=== PATIENT | female | born 1980 | race Caucasian/White ===

== ENCOUNTER 2020-11-07 13:23 | Emergency (ER) | payer SELFPAY ==
[~2020-11-07] VITALS: Ht 149.9 cm; Wt 69.1 kg
--- NOTE | 2020-11-07 14:25 | NUR ---
security systems manager: Pt ambulatory to room from lobby at this time.
--- NOTE | 2020-11-07 14:29 | NUR ---
project management professional: attempted to move pt from lobby to room, no answer in lobby
--- NOTE | 2020-11-07 15:02 | NUR ---
manufacturing design engineer: Pt ambulatory to room from lobby at this time.
[2020-11-07] MEDS ORDERED: BACITRACIN ZINC OINT 500U/GM, 0.9 GM ONE (15:44)
--- NOTE | 2020-11-07 16:31 | NUR ---
Patient given WOUND CARE/discharge instructions and they have confirmed that they understand the instructions. Patient ambulatory with steady gait. NAD, all questions answered appropriately, denies additional needs at this time. No personal belongings left in room after discharge.
[2020-11-07 16:32] VITALS: BP 118/84
== END 2020-11-07 16:55 | disposition home or self-care (01) ==
LOC: ED 15:22
DX: S01.05XA Open bite of scalp, initial encounter (principal); S41.151A Open bite of right upper arm, initial encounter; S51.051A Open bite, right elbow, initial encounter; S61.251A Open bite of left index finger without damage to nail, initial encounter; W54.0XXA Bitten by dog, initial encounter; Y93.89 Activity, other specified; Y92.009 Unspecified place in unspecified non-institutional (private) residence as the place of occurrence of the external cause; Y99.8 Other external cause status
CPT/HCPCS: 29105; 29125; 99284